=== PATIENT | female | born 1960 | race Caucasian/White ===

== ENCOUNTER 2024-11-08 20:06 | Emergency (ER) | payer BC, SELFPAY ==
[2024-11-08 20:10] VITALS: BP 127/79; PULSE 82; RESP 20; TEMP 36.6; O2SAT 98
--- NOTE | 2024-11-08 20:45 | DI.RAD_ITS ---
Exam(s) XR WRIST RT COMPLETE EXAM: XR WRIST RT COMPLETE CLINICAL HISTORY: FOOSH injury. TECHNIQUE: 2D digital imaging was performed. COMPARISON: No exams were available for comparison FINDINGS: 3 views No evidence of acute fracture nor carpal dislocation nor significant ulnar variance. Scaphoid and scapholunate distance are normal. A some degenerative changes in the 1st carpometacarpal joint. IMPRESSION: As above but no acute osseous findings. No fractures. No radiopaque foreign body. DATA REPOSITORY: RADIATION DOSE DELIVERED:
[2024-11-08] MEDS: Acetaminophen 500 MG TAB 1000 MG PO (20:52)
--- NOTE | 2024-11-08 20:55 | W.ED.GENAD ---
Discharge Plan Disposition Patient Disposition: Home Condition: Stable Discharge Details Clinical Impression: Fall, Sprain of right elbow Primary Care Provider: Unknown,Unknown ED Provider: Haley Capone Home Meds and New Rx's Prescriptions: No Action atenolol 25 mg PO BID amitriptyline 100 mg tablet 100 mg PO QHS levothyroxine [Euthyrox] 75 mcg tablet 75 mcg PO DAILY fludrocortisone 0.1 mg tablet 0.1 mg PO DAILY Discharge Instructions Instructions: Elbow Sprain ED, Preventing Falls ED Additional Instructions: At this time no evidence of obvious displaced fracture on the x-rays. Questionable radial subtle hairline fracture. Please wear the sling except for bathing over the next 2 to 3 days. Rest ice compression elevation. If your arm is still continuing to bother you please follow-up with orthopedics within the next week. You were given a disc of the x-rays of your arm today. Please take Tylenol or Ibuprofen with food every 4-6 hours as needed for pain and swelling. Follow up with primary care provider in 3-5 days. Return to ED sooner if any worsening confusion, neck pain, headache not relieved by Tylenol or ibuprofen or concerns. Thank you for allowing us to care for you today Referrals: [facility] [Outside, [facility]] - 1 week Referral Note: ER follow up HPI General Mode of arrival: ambulatory. Date/Time Provider Initiated Documentation: 11/08/24 20:16. Limitations to Documentation: no limitations. Information obtained by: patient, RN notes reviewed and old records reviewed. HPI Narrative: 64-year-old female presents to the ER with a chief complaint of right wrist and forearm pain after a FOOSH type injury prior to arrival. Approximately 1730 patient sustained a mechanical fall while in the garage tripped over a strap falling forward. She reports that she hit the front of her head no loss of consciousness denies any neck or back pain. Also reports right arm pain, ecchymosis and contusion noted to her lateral right forearm. Patient does not take any aspirin daily or blood thinners. Related Data Home Medications ?Medication ?Instructions ?Recorded ?Confirmed amitriptyline 100 mg tablet 100 mg PO QHS 11/08/24 11/08/24 atenolol 25 mg PO BID 11/08/24 11/08/24 fludrocortisone 0.1 mg tablet 0.1 mg PO DAILY 11/08/24 11/08/24 levothyroxine 75 mcg tablet 75 mcg PO DAILY 11/08/24 11/08/24 (Euthyrox) Allergies Allergy/AdvReac Type Severity Reaction Status Date / Time No Known Allergies Allergy Unverified 11/08/24 20:15 General Stated Complaint: Fall/Non TraumaCriteria ESTRELLA: 3 Review of Systems All systems reviewed & are unremarkable except as noted in HPI and below Constitutional Constitutional: Reports headache(s) (Mild left frontal small hematoma) ENT Ears, Nose, Mouth, and Throat: Reports headache(s) (Mild left frontal small hematoma) Neurologic Neurologic: Reports headache(s) (Mild left frontal small hematoma) Exam Narrative Exam Narrative: General: Well Developed, Awake and Alert, conversant. Skin: Warm and Dry HEENT: Head: No palpable deformities, Normocephalic small hematoma noted to the left frontal scalp. Eyes: Pupils PERRLA, EOM's intact. No periorbital eccymosis or step off Ears: Canal patent. Tympanic membranes are clear . No shields's sign, no hemptympanum. Nose/Face: Atraumatic. Facial bones nontender to palpation and stable with manipulation. Mouth/Throat: No intraoral trauma. Teeth and mandible are intact. Neck: No midline tenderness, no step off, no deformity to palpation of C-spine. Trachea midline. Chest: No surface trauma. Nontender without crepitus or deformity. Lungs clear to ausculatation bilaterally. Heart: RRR, no rubs, murmurs or gallop. Abdomen: Nondistended. Nontender to palpation no guarding, rebound, or rigidity. Pelvis: Patient ambulatory upon arrival to department. Extremities: no surface trauma. Sensation intact. Peripheral pulses intact and equal. Right wrist and forearm tenderness, ecchymosis noted to the lateral right forearm. Neuro: ANO x4, GCS 15, cranial nerves II through XII intact. Motor and sensory exam nonfocal. Reflexes are symmetric. Course Vital Signs Vital signs: Vital Signs Temperature 36.6 C 11/08/24 20:10 Pulse 82 11/08/24 20:10 Respiratory Rate 20 11/08/24 20:10 Blood Pressure 127/79 11/08/24 20:10 Pulse Oximetry 98 11/08/24 20:10 Temperature 36.6 C 11/08/24 20:10 Temperature Source Oral 11/08/24 20:10 Pulse 82 11/08/24 20:10 Respiratory Rate 20 11/08/24 20:10 Blood Pressure 127/79 11/08/24 20:10 Blood Pressure Position Sitting 11/08/24 20:10 Pulse Oximetry 98 11/08/24 20:10 Oxygen Delivery Method Room Air 11/08/24 20:10 Oxygen Flow Rate 0 11/08/24 20:10 Pain Level 4 11/08/24 20:52 Medical Decision Making 64-year-old female presents to the ER with a chief complaint of right wrist and forearm pain after a FOOSH type injury prior to arrival. Approximately 1730 patient sustained a mechanical fall while in the garage tripped over a strap falling forward. She reports that she hit the front of her head no loss of consciousness denies any neck or back pain. Also reports right arm pain, ecchymosis and contusion noted to her lateral right forearm. Patient does not take any aspirin daily or blood thinners. X-ray right forearm and wrist ordered. 1 g of Tylenol p.o. At this time mechanism was low, patient is A&O x 4 no evidence of any neurologic deficits, patient is not on any blood thinners CT imaging was deferred at this time. No midline C-spine tenderness. According to the [facility] head CT rule, CT Head not neccessary. XRay shows no obvious displaced fracture however questionable subtle radial head fracture. Will place in a sling and have patient follow up with orthopedics. Patient is from out of town and is requesting to follow-up at [facility], disc provided and follow-up instructions given. Home care given including RICE. Instructed to return for any closed head injury worsening including confusion vomiting headache not relieved by Tylenol or ibuprofen or any concerns. This text was generated using [employer]ip[employer] dictation system, please disregard any oddities of phrase or misspellings. PFSH All Active Problems (Updated 11/08/24 @ 22:29 by Haley Capone NP) Sprain of right elbow (Acute) Fall (Acute) Social History Smoking/Tobacco Use Status: Never Smoking risk assessment performed?: Yes Alcohol Intake: never Drug use: Never Housing: house
--- NOTE | 2024-11-08 21:00 | DI.RAD_ITS ---
Exam(s) XR FOREARM RT EXAM: XR FOREARM RT CLINICAL HISTORY: Fall, Right arm pain. TECHNIQUE: 2D digital imaging was performed. COMPARISON: No exams were available for comparison FINDINGS: 3 views There is soft tissue swelling over the dorsal aspect of the midforearm. There are no fractures in the mid and distal radius and ulna. However, proximally there is subtle suggestion of a transverse fracture of the radial neck, nondisplaced. The entire elbows not included in the field of view but there does appear to be a suggestion of an elbow joint effusion. IMPRESSION: There is a nondisplaced transverse nondisplaced radial neck fracture. Preliminary virtual Radiology report was reviewed Final report called by myself to ER physician 11/09/2024 at 1:40 p.m. DATA REPOSITORY: RADIATION DOSE DELIVERED:
--- NOTE | 2024-11-08 22:22 | DI.VRAD_ITS ---
PROCEDURE INFORMATION: Exam: XR Right Forearm Exam date and time: 11/08/2024 9:08 PM Age: 64 years old Clinical indication: Injury or trauma; Fall; Blunt trauma (contusions or hematomas); Arm, lower; Right TECHNIQUE: Imaging protocol: Radiologic exam of the right forearm. Views: 2 views. COMPARISON: CR XR WRIST RT COMPLETE 11/08/2024 9:03 PM FINDINGS: Bones/joints: Normal. Soft tissues: Normal. IMPRESSION: No evidence for fracture. Dictated and Authenticated by: Wendy Duvall MD. Orderin Liborio De Leon MD
--- NOTE | 2024-11-08 22:23 | DI.VRAD_ITS ---
PROCEDURE INFORMATION: Exam: XR Right Wrist Exam date and time: 11/08/2024 9:03 PM Age: 64 years old Clinical indication: Injury or trauma; Fall; Blunt trauma (contusions or hematomas); Wrist; Right TECHNIQUE: Imaging protocol: Radiologic exam of the right wrist. Views: 3 or more views. COMPARISON: No relevant prior studies available. FINDINGS: Bones/joints: Normal. Soft tissues: Normal. IMPRESSION: No evidence for fracture. Dictated and Authenticated by: Wendy Duvall MD. Orderin Liborio De Leon MD
== END 2024-11-08 22:39 | disposition home or self-care (01) ==
PROVIDERS: Emergency Provider Registered Nurse Emergency
DX: S53.402A Unspecified sprain of left elbow, initial encounter (principal); W01.198A Fall on same level from slipping, tripping and stumbling with subsequent striking against other object, initial encounter; Y93.89 Activity, other specified; Y92.015 Private garage of single-family (private) house as the place of occurrence of the external cause
CPT/HCPCS: 99283; 73090; 73110